=== PATIENT | male | born 1955 | race Caucasian/White ===

== ENCOUNTER 2021-05-22 11:46 | Emergency (ER) | payer BC, OTHER ==
[2021-05-22 12:24] VITALS: BP 149/93; PULSE 60; TEMP 98.1; BMI 27.3
[2021-05-22] MEDS ORDERED: SODIUM CHLORIDE 0.9% 500 ML INFUS.BAG IV ONE (13:34)
[2021-05-22 13:51] LABS: BASO % 0.5 % (0-2.0); EOS % 2.3 % (0-4.5); HEMOGLOBIN 13.6 GM/dL (11.7-16.9); LYMPH % 23.6 % (8-40); MCHC 34.1 g/dl (32.0-35.9); MEAN CELL VOLUME 88.2 fl (80-96); MEAN PLT VOLUME 6.8 fl (7.5-11.1); MONO % 10.2 % (3.8-10.2); NEUT % 63.4 % (42.8-82.8); PLATELET COUNT 205 10^3/uL (134-434); RBC 4.54 M/mm3 (4.00-5.60); RDW 14.9 % (11.9-15.9)
[2021-05-22] MEDS ORDERED: FAMOTIDINE 20 MG/50 ML IVPB 20 MG/50 ML MG IVPB ONE ×2 (14:00→14:05)
[2021-05-22] MEDS ORDERED: MAG HYDROX/AL HYDROX/SIMETH 30 ML UNIT-DOSE CUP PO ONE (14:00)
[2021-05-22] MEDS ORDERED: MAG HYDROX/AL HYDROX/SIMETH 30 ML UNIT-DOSE CUP ONE (14:05)
[2021-05-22 14:32] LABS: ALBUMIN 3.8 g/dl (3.4-5.0); ANION GAP 7 MMOL/L (8-16); BLOOD UREA NITROGEN 16.3 mg/dL (7-18); CALCIUM 8.8 mg/dL (8.5-10.1); CHLORIDE 99 mmol/L (98-107); CO2 30 mmol/L (21-32); GLUCOSE,RANDOM 137 mg/dL (74-106); SODIUM 137 mmol/L (136-145)
[2021-05-22 14:33] LABS: SGPT/ALT 23 U/L (13-61)
[2021-05-22 14:47] LABS: ALK PHOS 76 U/L (45-117); CREATININE 1.3 mg/dL (0.55-1.3); SGOT/AST 21 U/L (15-37); TOT PROT 7.1 g/dl (6.4-8.2)
== END 2021-05-22 16:00 | disposition home or self-care (01) ==
LOC: JER 11:46
PROC: 3E033NZ Introduction of Analgesics, Hypnotics, Sedatives into Peripheral Vein, Percutaneous Approach (ICD-10-PCS; principal; 2021-05-22)
DX: R10.84 Generalized abdominal pain (principal); T50.901A Poisoning by unspecified drugs, medicaments and biological substances, accidental (unintentional), initial encounter
CPT/HCPCS: 36415; 80053; 82550; 83735; 84484; 85025; 93005; 93010; 96365; 99284-25

== ENCOUNTER 2021-12-28 00:45 | Emergency (ER) | payer OTHER ==
[2021-12-28 01:01] VITALS: BP 156/87; PULSE 59; TEMP 98.6; BMI 27.3
== END 2021-12-28 01:38 | disposition home or self-care (01) ==
LOC: JER 00:45
DX: K64.9 Unspecified hemorrhoids (principal)
CPT/HCPCS: 99282-25